=== PATIENT | male | born 1960 | race Caucasian/White ===

== ENCOUNTER 2016-06-09 14:18 | Outpatient (CLI) | payer MEDICARE, OTHER ==
[2014-01-21 00:50] VITALS: BP 132/68
== END 2016-06-09 14:20 ==
LOC: POD 14:18
PROVIDERS: ATTEND Podiatrist
DX: B35.1 Tinea unguium (principal); M79.674 Pain in right toe(s); M79.675 Pain in left toe(s)
CPT/HCPCS: 11721; G0463

== ENCOUNTER 2016-09-08 13:38 | Outpatient (CLI) | payer MEDICARE, OTHER ==
[2014-01-21 00:50] VITALS: BP 132/68
== END 2016-09-08 13:40 ==
LOC: POD 13:38
PROVIDERS: ATTEND Podiatrist
DX: L89.891 Pressure ulcer of other site, stage 1 (principal)
CPT/HCPCS: 97597; G0463

== ENCOUNTER 2016-10-13 15:07 | Outpatient (CLI) | payer MEDICARE, OTHER ==
[2014-01-21 00:50] VITALS: BP 132/68
== END 2016-10-13 15:10 ==
LOC: POD 15:07
PROVIDERS: ATTEND Podiatrist
DX: M76.811 Anterior tibial syndrome, right leg (principal); L89.891 Pressure ulcer of other site, stage 1
CPT/HCPCS: G0463

== ENCOUNTER 2016-11-10 13:40 | Outpatient (CLI) | payer MEDICARE, OTHER ==
[2014-01-21 00:50] VITALS: BP 132/68
== END 2016-11-10 13:42 ==
LOC: POD 13:40
PROVIDERS: ATTEND Podiatrist
DX: L89.891 Pressure ulcer of other site, stage 1 (principal)
CPT/HCPCS: G0463

== ENCOUNTER 2017-01-02 15:01 | Outpatient (CLI) | payer MEDICARE, OTHER ==
[2014-01-21 00:50] VITALS: BP 132/68
== END 2017-01-02 15:02 ==
LOC: POD 15:01
PROVIDERS: ATTEND Podiatrist
DX: L89.892 Pressure ulcer of other site, stage 2 (principal)
CPT/HCPCS: 11042; G0463

== ENCOUNTER 2017-01-23 14:03 | Outpatient (CLI) | payer MEDICARE, OTHER ==
[2014-01-21 00:50] VITALS: BP 132/68
== END 2017-01-23 14:04 ==
LOC: POD 14:03
PROVIDERS: ATTEND Podiatrist
DX: L89.891 Pressure ulcer of other site, stage 1 (principal)
CPT/HCPCS: G0463

== ENCOUNTER 2017-02-23 13:53 | Outpatient (CLI) | payer MEDICARE, OTHER ==
[2014-01-21 00:50] VITALS: BP 132/68
== END 2017-02-23 13:54 ==
LOC: POD 13:53
PROVIDERS: ATTEND Podiatrist
DX: L89.892 Pressure ulcer of other site, stage 2 (principal)
CPT/HCPCS: 97597

== ENCOUNTER 2017-03-24 09:05 | Emergency (ER) | payer MEDICARE, OTHER ==
[2017-03-24 09:34] VITALS: BP 124/88
--- NOTE | 2017-03-24 09:42 | ED Physician Documentation ---
General Adult - HISTORIAN Historian: patient - HPI Stated Complaint: sore throat Chief Complaint: General Adult Additional Information: pt c/o hoarseness eam better now and mild head congestion-went to urgent care got worse thinks no help-suspect viral few days ago neg cxr and neg flu titer given z pack no better. eats sleeps bowels kidneys ok. Onset: days ago (1) Timing: still present Severity: mild, moderate Further Comments: yes (suspect viral etiol-not unusual to get no help viral syndrome when given antibiotics) - ROS CONST: no problems EYES/ENT: none CVS/RESP: none GI/: none. denies: problems urinating MS/SKIN/LYMPH: none NEURO/PSYCH: anxiety (very slight). denies: headache, difficulty with speech - PAST HX Past History: hypertension Other History: none Surgeries/Procedures: other (feet as child) Allergies/Adverse Reactions: Allergies Allergy/AdvReac Type Severity Reaction Status Date / Time [id number] Reductase Allergy Unknown Verified 03/24/17 09:28 Inhibitor Home Medications: Ambulatory Orders Medication Instructions Recorded Budesonide/Formoterol Fumarate 1 puff IH DAILY 03/24/17 [Symbicort 80-4.5 Mcg Inhaler] Esomeprazole Magnesium [Nexium] 40 mg PO DAILY 03/24/17 Fluticasone Propionate [Flonase 9.9 ml NS DAILY 03/24/17 Allergy Relief] Levocetirizine Dihydrochloride 5 mg PO DAILY 03/24/17 [Xyzal] Lisinopril [Lisinopril] 40 mg PO DAILY 03/24/17 Milnacipran HCl [Savella] 50 mg PO BID 03/24/17 Polyethylene Glycol 3350 [Miralax] 17 gm PO 1100 03/24/17 Pravastatin Sodium [Pravachol] 10 mg PO HS 03/24/17 Tamsulosin HCl [Flomax] 0.4 mg PO [id number] 03/24/17 - SOCIAL HX Smoking History: non-smoker Alcohol Use: none Drug Use: none - FAMILY HX Family History: No - VITAL SIGNS Vital Signs: Vital Signs Temp Pulse Resp BP Pulse Ox 98.3 F 113 H 18 124/88 97 03/24/17 09:29 03/24/17 09:29 03/24/17 09:29 03/24/17 09:29 03/24/17 09:29 - REVIEWED ASSESSMENTS Nursing Assessment Reviewed: Yes Vitals Reviewed: Yes General Adult Physical Exam - PHYSICAL EXAM GENERAL APPEARANCE: mild distress (perhaps appears normal) EENT: eye inspection normal NECK: normal inspection, thyroid normal RESPIRATORY: no resp distress, chest non-tender, breath sounds normal. No: wheezes, rales, rhonchi CVS: reg rate & rhythm ABDOMEN: soft, non-tender SKIN: warm/dry, normal color. No: cyanosis, diaphoresis, jaundice EXTREMITIES: non-tender, normal range of motion NEURO: oriented X3 Discharge Clincal Impression: viral syndrome, mild nasal congestion Referrals: Primary Doctor,No [Primary Care Provider] - 2 Days Comments: pt told to f/u w/pcp or rted prn Condition: Good Disposition: 01 HOME, SELF-CARE Decision to Admit: NO Decision Time: 09:48
== END 2017-03-24 09:40 | disposition home or self-care (01) ==
LOC: ED 09:05
DX: B34.9 Viral infection, unspecified (principal); R09.81 Nasal congestion
CPT/HCPCS: 87070; 87880; 99282

== ENCOUNTER 2017-04-03 13:49 | Outpatient (CLI) | payer MEDICARE, OTHER ==
[2014-01-21 00:50] VITALS: BP 132/68
== END 2017-04-03 13:50 ==
LOC: POD 13:49
PROVIDERS: ATTEND Podiatrist
DX: B35.1 Tinea unguium (principal); M79.674 Pain in right toe(s); M79.675 Pain in left toe(s)
CPT/HCPCS: 11720; G0463

== ENCOUNTER 2017-06-05 13:07 | Outpatient (CLI) | payer MEDICARE, OTHER | END 2017-06-05 13:10 | LOC: POD 13:07 | PROVIDERS: ATTEND Podiatrist | DX: B35.1 Tinea unguium (principal); M79.674 Pain in right toe(s); M79.675 Pain in left toe(s) | CPT/HCPCS: 11720; G0463 ==